=== PATIENT | female | born 1975 | race Caucasian/White ===

== ENCOUNTER 2017-08-30 20:52 | Emergency (ER) | payer OTHER ==
[2017-08-30 21:17] VITALS: BP 118/55; PULSE 61; TEMP 98.4; BMI 35.2
[2017-08-30] MEDS ORDERED: AMOX TR/POT CLAV 875MG/125MG TABLETS (FP) PO ONE (23:51)
[2017-08-30] MEDS ORDERED: IBUPROFEN 400 MG TABLET (FP) PO ONE ×2 (23:51→23:58)
[2017-08-30] MEDS ORDERED: AMOX TR/POT CLAV 875MG/125MG TABLETS (FP) ONE (23:58)
--- NOTE | 2017-08-30 23:58 | PDOC ---
History of Present Illness - General Chief Complaint: Vaginal Sxs Stated Complaint: ABDOMINAL PAIN Time Seen by Provider: 08/30/17 23:10 History Source: Patient - History of Present Illness Initial Comments: 08/31/17 00:18 42 year old female with left labial swelling and pain that is worsening x 2 days. denies fever, NVD, urinary symptoms at this time. Past History - Past Medical History Allergies/Adverse Reactions: Allergies Allergy/AdvReac Type Severity Reaction Status Date / Time No Known Allergies Allergy Verified 08/02/17 12:29 Home Medications: Ambulatory Orders Amoxicillin/Potassium Clav [Augmentin 875-125 Tablet] 1 each PO BID #20 tablet 08/31/17 Ibuprofen 600 mg PO QID PRN #20 tablet 08/31/17 Asthma: No Cancer: No Cardiac Disorders: No Diabetes: No HTN: No Seizures: No Thyroid Disease: No - Reproductive History (#): 4 Para: 3 Cervical CA: No Dysfunctional Uterine Bleeding: No Ectopic : No Endometrial CA: No Polycystic Ovaries: No Therapeutic (s) & number: No Tubal Ligation: No Spontaneous : 0 - Immunization History Immunization Up to Date: Yes - Suicide/Smoking/Psychosocial Hx Smoking History: Never smoked Have you smoked in the past 12 months: No Number of Cigarettes Smoked Daily: 0 Cigars Per Day: 0 Hx Alcohol Use: No Drug/Substance Use Hx: No Substance Use Type: None Hx Substance Use Treatment: No Review of Systems - Review of Systems Able to Perform ROS?: Yes Is the patient limited Swedish proficient: No Constitutional: No: Symptoms Reported, See HPI, Chills, Diaphoresis, Fever, Loss of Appetite, Malaise, Night Sweats, Weakness, Weight Stable, Unintentional Wgt. Loss, Unexplained wgt Loss, Other : Yes: Other (labial swelling) *Physical Exam - Vital Signs Last Vital Signs Temp Pulse Resp BP Pulse Ox 98.4 F 61 14 118/55 100 08/30/17 21:12 08/30/17 21:12 08/30/17 21:12 08/30/17 21:12 08/30/17 21:12 - Physical Exam General Appearance: Yes: Appropriately Dressed Procedures - Incision and Drainage I&D Site: Left: Groin (left labial swelling) Betadine cleansed: Yes Anesthesia: 1% Lidocaine Volume(ml): 5 Blade Size: 11 Attempts: 1 Iodinated Packin/4 in Plain Packing: Yes Complications: none Dressing: No (pad ) Progress: 08/31/17 00:20 ~ 3-4 ml of serous fluid drainaged from left labia. Progress Note - Progress Note Progress Note: A: bartholin cyst drAINAGE P: see i & D note will cover with augmentin pain control wound check in 2 days. *DC/Admit/Observation/Transfer Diagnosis at time of Disposition: Bartholin gland cyst - Discharge Dispostion Disposition: HOME - Prescriptions Prescriptions: Amoxicillin/Potassium Clav [Augmentin 875-125 Tablet] 1 each PO BID #20 tablet Ibuprofen 600 mg PO QID PRN #20 tablet PRN Reason: Pain - Patient Instructions Printed Discharge Instructions: DI for Bartholin Gland Cyst Additional Instructions: use sitz bath 3-4 times daily. return to the ER in 2 days for wound reevaluation, continue augmentin as prescribed. take ibuprofen every 6 hours as needed for pain.
--- NOTE | 2017-08-31 00:22 | PDOC ---
*Physical Exam - Vital Signs Last Vital Signs Temp Pulse Resp BP Pulse Ox 98.4 F 61 14 118/55 100 08/30/17 21:12 08/30/17 21:12 08/30/17 21:12 08/30/17 21:12 08/30/17 21:12 ED Treatment Course - Medications Given in the ED: ED Medications Discontinued Medications Generic Name Dose Route Start Last Admin Trade Name Freq PRN Reason Stop Dose Admin Amoxicillin/Clavulanate Potassium 1 tab 08/30/17 23:51 08/31/17 00:01 Augmentin - 875mg Tablet PO 08/30/17 23:52 1 tab ONCE ONE Administration Ibuprofen 800 mg 08/30/17 23:51 08/31/17 00:01 Motrin - PO 08/30/17 23:52 800 mg ONCE ONE Administration Medical Decision Making - Medical Decision Making 08/31/17 00:22 agree with care MARISELA Floyd
== END 2017-08-31 00:49 | disposition home or self-care (01) ==
LOC: JERFT 20:52 → JER 20:52
DX: N75.0 Cyst of Bartholin's gland (principal)
CPT/HCPCS: 99284-25

== ENCOUNTER 2017-09-01 19:54 | Emergency (ER) | payer OTHER ==
[2017-09-01 20:02] VITALS: BP 132/63; PULSE 54; TEMP 98.6; BMI 61.5
--- NOTE | 2017-09-01 20:32 | PDOC ---
Suture Removal/Wound Check HPI - History of Present Illness Chief Complaint: Revisit,Wound Recheck Stated Complaint: WOUND CHECK Time Seen by Provider: 09/01/17 20:23 History Source: Yes: Patient Exam Limitations: Yes: No Limitations [facility] Date of Last ED visit: 08/30/17 - Previous ED Treatment Type of procedure performed on last visit: Yes: Other (I&D of Bartholin's) Antibiotics Prescribed: Yes (pt unable to fill Rx) Past History - Past Medical History Allergies/Adverse Reactions: Allergies Allergy/AdvReac Type Severity Reaction Status Date / Time No Known Allergies Allergy Verified 09/01/17 20:02 Home Medications: Ambulatory Orders Acetaminophen [Tylenol] 650 mg PO PRN 08/31/17 Ibuprofen 600 mg PO QID PRN #20 tablet 08/31/17 Amoxicillin/Potassium Clav [Augmentin 875-125 Tablet] 1 each PO BID #20 tablet 09/01/17 Asthma: No Cancer: No Cardiac Disorders: No Diabetes: No HTN: No Seizures: No Thyroid Disease: No - Reproductive History (#): 4 Para: 3 Cervical CA: No Dysfunctional Uterine Bleeding: No Ectopic : No Endometrial CA: No Polycystic Ovaries: No Therapeutic (s) & number: No Tubal Ligation: No Spontaneous : 0 - Immunization History Immunization Up to Date: Yes - Suicide/Smoking/Psychosocial Hx Smoking History: Never smoked Have you smoked in the past 12 months: No Number of Cigarettes Smoked Daily: 0 Cigars Per Day: 0 Hx Alcohol Use: No Drug/Substance Use Hx: No Substance Use Type: None Hx Substance Use Treatment: No Suture Removal/Wound Check PE - Physical Exam Laceration/Wound Check Symptoms: reports: None Current Severity Level: None Maximum Severity Level: None Pain Localization: None *Review of Systems - Review of Systems Able to Perform ROS?: Yes Constitutional: No: Symptoms Reported HEENTM: No: Symptoms Reported Respiratory: No: Symptoms reported Cardiac (ROS): No: Symptoms Reported ABD/GI: No: Symptoms Reported : No: Symptoms Reported Musculoskeletal: No: Symptoms Reported Integumentary: No: Symptoms Reported Neurological: No: Symptoms reported Medical Decision Making - Medical Decision Making 09/01/17 20:33 This is a 42-year-old woman without significant past medical history who presents to the ER today for wound check status post I&D of Bartholin's cyst on 08/30. Patient was prescribed Augmentin at that time but has not filled prescription because prescription was sent to the wrong pharmacy. Wound is well appearing without discharge or drainage. No Word catheter is in place. The area is not erythematous patient says she has not had a fevers. *DC/Admit/Observation/Transfer Diagnosis at time of Disposition: Bartholin gland cyst - Discharge Dispostion Disposition: HOME Condition at time of disposition: Stable Admit: No - Prescriptions Prescriptions: Amoxicillin/Potassium Clav [Augmentin 875-125 Tablet] 1 each PO BID #20 tablet - Patient Instructions Additional Instructions: Use baos de asiento 3 veces al da segn sea necesario para el dolor. [place] Augmentin segn lo prescrito. [place] Tylenol o Motrin segn sea necesario para el dolor siguiendo las instrucciones del fabricante. Regrese al departamento de emergencia para cualquier descarga, drenaje, dolor tommy o cualquier otra inquietud. Epi por elegirnos para brindarle she necesidades mdicas de emergencia.
== END 2017-09-01 20:38 | disposition home or self-care (01) ==
LOC: JERFT 19:54
DX: N75.0 Cyst of Bartholin's gland (principal)
CPT/HCPCS: 99281-25

== ENCOUNTER 2019-05-23 21:33 | Emergency (ER) | payer OTHER ==
[2019-05-23 22:16] VITALS: BMI 39.0
--- NOTE | 2019-05-24 00:50 | PDOC ---
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) Past History - Past Medical History Allergies/Adverse Reactions: Allergies Allergy/AdvReac Type Severity Reaction Status Date / Time No Known Allergies Allergy Verified 09/01/17 20:02 Home Medications: Ambulatory Orders Acetaminophen [Tylenol] 650 mg PO PRN 08/31/17 Ibuprofen 600 mg PO QID PRN #20 tablet 08/31/17 Amoxicillin/Potassium Clav [Augmentin 875-125 Tablet] 1 each PO BID #20 tablet 09/01/17 Clotrimazole [Lotrimin 1% Solution -] 1 applic TP BID #1 bottle 05/24/19 Asthma: No Cancer: No Cardiac Disorders: No Diabetes: No HTN: No Seizures: No Thyroid Disease: No - Reproductive History (#): 4 Para: 3 Cervical CA: No Dysfunctional Uterine Bleeding: No Ectopic : No Endometrial CA: No Polycystic Ovaries: No Therapeutic (s) & number: No Tubal Ligation: No Spontaneous : 0 - Immunization History Immunization Up to Date: Yes - Suicide/Smoking/Psychosocial Hx Smoking History: Never smoked Have you smoked in the past 12 months: No Number of Cigarettes Smoked Daily: 0 Cigars Per Day: 0 Hx Alcohol Use: No Drug/Substance Use Hx: No Substance Use Type: None Hx Substance Use Treatment: No *Physical Exam - Vital Signs Last Vital Signs Temp Pulse Resp BP Pulse Ox 98.2 F 60 20 103/51 L 99 05/23/19 22:11 05/23/19 22:11 05/23/19 22:11 05/23/19 22:11 05/23/19 22:11 - Physical Exam General Appearance: No: Apparent Distress Respiratory/Chest: positive: Lungs Clear, Normal Breath Sounds. negative: Respiratory Distress Cardiovascular: positive: Regular Rhythm, Regular Rate, S1, S2. negative: Murmur Gastrointestinal/Abdominal: positive: Other (gravid uterus) Integumentary: positive: Rash (almost circular lesion noted along R side of neck and also along abdomen, +excoriation and dryness of skin, raised bumps, no vesicular lesions). negative: Hives, Petechiae, Swelling, Ecchymosis, Bruising Neurologic: positive: Alert, Normal Mood/Affect Medical Decision Making - Medical Decision Making 44 y/o F currently 34 weeks presents with itchy rash along neck, abdomen and feet from last week. States it went away last week and returned yesterday. States PCP prescribed ?cream last week, but patient did not receive anything when she went to pharmacy. Denies recent travel/use of new meds/ products/food, recent camping/hiking, sob, cp, abd pain, n/v, vaginal bleeding Possible fungal rash? D/W Dr. Neal - plan for Lotrimin cream patient to be sent to L&D given 34 weeks 05/24/19 00:46 *DC/Admit/Observation/Transfer Diagnosis at time of Disposition: Rash - Discharge Dispostion Disposition: HOME Condition at time of disposition: Stable Decision to Admit order: No - Prescriptions Prescriptions: Clotrimazole [Lotrimin 1% Solution -] 1 applic TP BID #1 bottle - Referrals - Patient Instructions Printed Discharge Instructions: DI for Rash Additional Instructions: Thank you for choosing [facility]. It was a pleasure taking care of you. Please apply cream twice a day Follow-up with your doctor in 2 days Return to the Emergency Department if your symptoms worsen or persist or have other concerning symptoms. Epi por elegir el [facility]. Fue un placer cuidar de ti. Por favor, aplique crema dos veces al da. Seguimiento con gibson mdico en 2 sierra. Regrese al Departamento de Emergencias si she sntomas empeoran o persisten o si tiene otros sntomas relacionados. - Post Discharge Activity
[2019-05-24 01:32] VITALS: BP 101/56; PULSE 62; TEMP 98.4
== END 2019-05-24 01:44 | disposition home or self-care (01) ==
LOC: JER 21:33
DX: O99.89 Other specified diseases and conditions complicating pregnancy, childbirth and the puerperium (principal); R21 Rash and other nonspecific skin eruption; Z3A.34 34 weeks gestation of pregnancy
CPT/HCPCS: 99282-25

== ENCOUNTER 2019-06-20 09:25 | Inpatient (IN) | payer OTHER ==
[2019-06-20] MEDS ORDERED: OXYTOCIN 30 UNITS in 0.9% NS 30 UNIT/500 ML INFUS.BAG IVPB ONE ×2 (09:49→17:33)
[2019-06-20] MEDS ORDERED: ELECTROLYTE-148 SOLN 1,000 ML IV SCH ×2 (09:50→11:00)
[2019-06-20 10:24] VITALS: BMI 37.5
[2019-06-20] MEDS ORDERED: BUTORPHANOL TARTRATE 1 MG/ML VIAL IVPB ONE (10:47)
[2019-06-20] MEDS ORDERED: OXYTOCIN 30 UNITS in 0.9% NS 30 UNIT/500 ML INFUS.BAG IVPB SCH (11:00)
--- NOTE | 2019-06-20 11:07 | HP ---
Past Medical History - Admission Chief Complaint: IOL History of Present Illness: 44yo @ 39.1wks by LMP c/w early sono, NAYE 06/26/19 here for IOL, elective. Preg c/b AMA, elevated DSR on FTS, normal Materniti 21- 46XY, abnormal pap ( colpo PP), QFT pos, CXR neg, obesity, 06/03 nl sono but AC 95%tile [facility] @ [address], consistent History Source: Patient Limitations to Obtaining History: Language Barrier - Past Medical History BUSINESS RELATIONSHIP MANAGER: No: Alzheimer's, CVA, Dementia, Migraine, Multiple Sclerosis, Peripheral Neuropathy, Parkinson's, Seizure, Syncope, TIA, Vertigo, Other Cardiovascular: No: AFIB, Aneurysm, Aortic Insufficiency, Aortic Stenosis, CAD, CHF, Deep Vein Thrombosis, HTN, Hyperlipdemia, MD, Mitral Insufficiency, Mitral Stenosis, Murmur, Pulmonary Hypertension, Other Pulmonary: No: Asthma, Bronchitis, Cancer, COPD, O2 Dependent, Pneumonia, Previously Intubated, Pulmonary Embolus, Pulmonary Fibrosis, Sleep Apnea, Other Gastrointestinal: No: Ascites, Cancer, Constipation, Crohn's Disease, Diverticulitis, Diverticulosis, Esophageal Varices, Gastritis, GERD, GI Bleed, Hemorrhoids, Hiatal Hernia, Inflamatory Bowel Disease, Irritable Bowel Disease, Pancreatitis, Peptic Ulcer Disease, Ulcerative Colitis, Other Hepatobiliary: No: Cirrhosis, Cholelithiasis, Cholecystitis, Choledocholithiasis , Hepatitis A, Hepatitis B, Hepatitis C, Other Renal/: No: Renal Failure, Renal Inusuff, BPH, Cancer, Hematuria, Hemodialysis , Neurogenic Bladder, Renal Calculi, UTI, Other Reproductive: No: Ectopic , Endometriosis, Fibroids, PID, Polycystic Ovary Syndrome, Postmenopausal, Other ...: 5 ...Para: 3 ...Term: 3 ...: 0 ...Spon : 1 ...Induced : 0 ...LMP: 09/19/18 ...EDC by Dates: 06/22/19 ...EDC by Sono: 06/26/19 Heme/Onc: Yes: Anemia Infectious Disease: No: AIDS, C-Diff, Herpes Zoster, HIV, MRSA, STD's, Tuberculosis, VREF, Other Psych: No: Addictions, Anxiety, Bipolar, Depression, Panic, Psychosis, Schizophrenia, Other Musculoskeletal: No: Bursitis, Chronic low back pain, Hemiparesis, Hemiplegia, Osteoarthritis, Paraplegia, Other Rheumatology: No: Fibromyalgia, Gout, Lupus, Rheumatoid Arthritis, Sarcoidosis, Vasculitis, Other ENT: No: Allergic Rhinitis, Sinusitis, Other Endocrine: No: Stefano's Disease, Glenoma's Disease, Diabetes Insipidus, Diabetes Mellitus, Hyperparathyroidism, Hyperthyroidism, Hypothyroidism, Osteopenia, SIADH, Other Dermatology: No: Basal Cell, Cellulitis, Eczema, Melanoma, Psoriasis, Squamous Cell, Other - Past Surgical History Past Surgical History: No: None, AAA Repair, AICD, Amputation, Appendectomy, Arthrosocopy, AV Fistula/Graft, Bariatric Surgery, Breast Biopsy, Bypass, CABG, Carotid Endarterectomy, Cataract Removal, Cholecystectomy, Colectomy, Colonoscopy, Colostomy, Craniotomy, , Cystectomy, Hernia Repair, Hysterectomy, Ileal Conduit, Ileosotomy, Joint Replacement, Kidney Transplant, Laminectomy, Liver Transplant, Mastectomy, Nephrectomy, Oopherectomy, Orchiectomy, Permanent Pacemaker, Prostatectomy, Splenectomy, Stent, Thoracotomy , TURP, Tonsillectomy, Tubal Ligation, Upper Endoscopy, Valve Replacement, Vasectomy, Vein Stripping/Ligation Hx Myomectomy: No Hx Transabdominal Cerclage: No - Smoking History Smoking history: Never smoked Have you smoked in the past 12 months: No Aproximately how many cigarettes per day: 0 - Alcohol/Substance Use Hx Alcohol Use: No History of Substance Use: reports: None - Social History Usual Living Arrangement: Yes: Alone ADL: Independent History of Recent Travel: No Home Medications - Allergies Allergies/Adverse Reactions: Allergies Allergy/AdvReac Type Severity Reaction Status Date / Time No Known Allergies Allergy Verified 05/24/19 00:59 - Home Medications Home Medications: Ambulatory Orders Iron 1 tab PO DAILY 06/20/19 Vitamins (Sjr) - 1 tab PO DAILY 06/20/19 Physical Exam - Maternity Constitutional: Yes: Well Nourished, No Distress, Calm Eyes: Yes: WNL, Conjunctiva Clear, EOM Intact HENT: Yes: WNL, Atraumatic, Normocephalic Neck: Yes: WNL, Supple, Trachea Midline Cardiovascular: Yes: WNL, Regular Rate and Rhythm Breast(s): Yes: WNL - Abdominal Exam/OB Number of Fetuses: Single Presentation: Vertex Contractions: No Heart Rate Location: LUQ Category: I Accelerations: Non-Uniform Decelerations: None - Vaginal Exam/OB Vaginal Bleediing: No Speculum Exam: No Dilatation (cm): 2 Effacement (%): 50 Amniotic Membrane Status: Intact Station: -3 - Physical Exam Edema: No Assessment/Plan 44yo @ 39+wks here for elective IOL Admit to L&D Christiansen bulb, pitocin Stadol prn, epidural prn Cat I tracing Clear fluids PO, IVFs Anticipate Alfonzo Cobb MD
[2019-06-20 11:11] LABS: BASO % 0.7 % (0-2.0); EOS % 0.5 % (0-4.5); HEMATOCRIT 33.1 % (32.4-45.2); HEMOGLOBIN 10.9 GM/dL (10.7-15.3); LYMPH % 24.7 % (8-40); MCH 26.5 pg (25.7-33.7); MCHC 32.8 g/dl (32.0-36.0); MEAN CELL VOLUME 80.8 fl (80-96); MEAN PLT VOLUME 7.9 fl (7.5-11.1); MONO % 7.3 % (3.8-10.2); NEUT % 66.8 % (42.8-82.8); PLATELET COUNT 264 K/MM3 (134-434); RBC 4.11 M/mm3 (3.60-5.2); RDW 17.4 % (11.6-15.6); WHITE BLOOD COUNT 6.1 K/mm3 (4.0-10.0)
[2019-06-20 11:34] LABS: BLOOD UREA NITROGEN 7.2 mg/dL (7-18); CALCIUM 8.8 mg/dL (8.5-10.1); CREATININE 0.5 mg/dL (0.55-1.3); POTASSIUM 4.3 mmol/L (3.5-5.1)
[2019-06-20 12:13] LABS: INR 0.92 (0.83-1.09); PROTHROMBIN TIME (PATIENT) 10.9 SEC (9.7-13.0)
[2019-06-20 12:16] LABS: ACTIVATED PTT 27.4 SECONDS (25.2-36.5)
--- NOTE | 2019-06-20 12:47 | PN ---
Progress Note, Labor Vaginal Exam #1 Labor Exam Date: 06/20/19 Labor Exam Time: 12:47 Heart Rate (range): Cat I Dilatation: 4 Effacement (%): 50 Amniotic Membrane Status: Ruptured Presentation: Vertex/Position Station: -3 Remarks: Christiansen Bulb out AROM, scant clear/blood tinged Cont Pitocin Cat I tracing Anticipate KAREN Cobb MD
[2019-06-20] MEDS ORDERED: FENTANYL/BUPIVACAINE/NS/PF - PCEA - 50 ML DISP.SYRIN EP ONE (14:36)
[2019-06-20] MEDS ORDERED: NALOXONE HCL 0.4 MG/ML VIAL IVPUSH PRN (16:01)
[2019-06-20] MEDS ORDERED: FENTANYL/BUPIVACAINE/NS/PF - PCEA - 50 ML DISP.SYRIN EP SCH (16:15)
--- NOTE | 2019-06-20 16:18 | PN ---
Progress Note, Labor Vaginal Exam #2 Labor Exam Date: 06/20/19 Labor Exam Time: 16:15 Heart Rate (range): Cat I Dilatation: 6 Effacement (%): 70 Amniotic Membrane Status: Ruptured Presentation: Vertex/Position Station: -3 Remarks: Comfortable s/p epidural Now 6cm Cont Pitocin Anticipate Alfonzo Cobb MD
--- NOTE | 2019-06-20 17:29 | PN ---
Progress Note, Labor Vaginal Exam #3 Labor Exam Date: 06/20/19 Labor Exam Time: 17:29 Heart Rate (range): Cat i Dilatation: 9 Effacement (%): 100 Amniotic Membrane Status: Ruptured Presentation: Vertex/Position Station: 0 Remarks: Feeling urge to push 9cm with reducible cervix Anticipate Alfonzo Cobb MD
[2019-06-20] MEDS ORDERED: LIDOCAINE HCL 1% PRESERVATIVE FREE - 30ML VIAL ONE (17:33)
[2019-06-20] MEDS ORDERED: BISACODYL 10 MG SUPP.RECT RC PRN (18:36)
[2019-06-20] MEDS ORDERED: WITCH HAZEL 50% (TUCKS) 40 PAD/JAR PAD TP PRN (18:36)
[2019-06-20] MEDS ORDERED: METHYLERGONOVINE MALEATE 0.2 MG/1 ML AMP IM PRN (18:36)
[2019-06-20] MEDS ORDERED: BENZOCAINE 28 GM HEMORRHOIDAL OINTMENT TP PRN (18:36)
[2019-06-20] MEDS ORDERED: BENZOCAINE 20% 57 GM BOTTLE TP PRN (18:36)
--- NOTE | 2019-06-20 18:36 | PN ---
Delivery - Delivery Vaginal Delivery: Shoulder/Difficult Maneuvers: Didi, Delivery of posterior arm Type of Anesthesia: Epidural Episiotomy/Laceration: Midline, 2nd degree EBL (cc): 250 Delivery, Single - Stages of Labor Placenta: Yes: Spontaneous - Condition of Infant Ship Erector/Nurse Case Manager Present: Yes Infant Gender: Male Position: Right, OA - 1 Minute Total Score: 2 5 Minutes Total Score: 7 - Feeding Plan Initial Plan: Elected not to breastfeed exclusively throughout hospitalization Remarks - Remarks Remarks: Patient pushed spontaneously to deliver head, VMI, MARLENI position over intact perineum. Epidural anesthesia. No spontaneous delivery of the anterior shoulder from MARLENI position with maternal effort. Despite encouragement, poor maternal effort continued and she was unable to deliver the anterior (left) shoulder. Shoulder dystocia announced. McRobert's performed by nursing staff with no resolution of the shoulder dystocia and still poor maternal effort. Decision made to proceed with delivery of posterior arm. right arm palpated along anterior surface, flexed at the elbow and wrist grasped to deliver posterior shoulder and arm. Resolution of the shoulder dystocia noted and anterior shoulder delivered subsequently without any difficulty. placed on maternal abdomen, cord clamped and cut by provider. Right arm noted to be limp and NICU attending and staff notified immediately. The was handed over to the awaiting NICU staff. Cord glasses obtained. Apgars 2, 7. Weight 8lbs, 7oz. Spontaneous delivery of intact placenta. 3VC. Second degree laceration noted and repaired with a 2-0 vicryl. Hemostasis noted. Fundus firm. EBL 250ml. Complication and difficulty of delivery explained to patient and her partner, advised of suspected fracture of the R arm and possible need for transfer, if confirmed on Xray, to [facility] for continuation of care with orthopedics. Rika Cobb MD
[2019-06-20] MEDS ORDERED: OXYTOCIN 20 UNITS in 0.9% NS 20 UNIT/1,000 ML INFUS.BAG IV SCH (18:45)
[2019-06-20] MEDS ORDERED: IBUPROFEN 600 MG TABLET (FP) PO ONE (19:04)
[2019-06-20] MEDS ORDERED: ACETAMINOPHEN 325 MG TABLET (FP) ONE (19:04)
[2019-06-20] MEDS: IBUPROFEN 600 MG TABLET (FP) PO PRN (19:05)
[2019-06-20] MEDS: ACETAMINOPHEN 325 MG TABLET (FP) PO PRN (19:05)
[2019-06-21] MEDS: IBUPROFEN 600 MG TABLET (FP) PO PRN ×3 (04:36→19:28)
[2019-06-21] MEDS: ACETAMINOPHEN 325 MG TABLET (FP) PO PRN ×3 (04:36→19:28)
[2019-06-21 07:33] LABS: BASO % 0.3 % (0-2.0); EOS % 0.4 % (0-4.5); HEMATOCRIT 30.6 % (32.4-45.2); HEMOGLOBIN 10.2 GM/dL (10.7-15.3); MCHC 33.4 g/dl (32.0-36.0); MEAN CELL VOLUME 80.8 fl (80-96); MEAN PLT VOLUME 8.4 fl (7.5-11.1); MONO % 5.9 % (3.8-10.2); NEUT % 75.4 % (42.8-82.8); PLATELET COUNT 225 K/MM3 (134-434); RBC 3.78 M/mm3 (3.60-5.2); RDW 17.4 % (11.6-15.6); WHITE BLOOD COUNT 9.1 K/mm3 (4.0-10.0)
[2019-06-21] MEDS ORDERED: PRENATAL VITAMINS W/ FOLIC ACID TABLET (FP) PO SCH (10:00)
--- NOTE | 2019-06-21 12:06 | PN ---
Post Progress Note - Subjective Subjective: Pain controlled. No fevers/chills. transferred 2/2 fracture Post Day: 1 Type of Delivery: Vital Signs: Vital Signs Temperature 97.9 F 06/21/19 10:00 Pulse Rate 63 06/21/19 10:00 Respiratory Rate 20 06/21/19 10:00 Blood Pressure 99/52 L 06/21/19 10:00 O2 Sat by Pulse Oximetry (%) 100 06/20/19 17:30 Breast Exam: Yes: Soft Uterus: Yes: Fundus @ umbilicus Incision: Yes: Sutures intact Abdomen/GI: Yes: Abdomen soft Lochia: Yes: Rubra Lochia, amount: Small Extremities: Yes: Calves non-tender Perineum: Yes: Laceration Activity: Ambulating - Labs Labs: CBC WBC 9.1 K/mm3 (4.0-10.0) 06/21/19 06:40 RBC 3.78 M/mm3 (3.60-5.2) 06/21/19 06:40 Hgb 10.2 GM/dL (10.7-15.3) L 06/21/19 06:40 Hct 30.6 % (32.4-45.2) L 06/21/19 06:40 MCV 80.8 fl (80-96) 06/21/19 06:40 MCH 27.0 pg (25.7-33.7) 06/21/19 06:40 MCHC 33.4 g/dl (32.0-36.0) 06/21/19 06:40 RDW 17.4 % (11.6-15.6) H 06/21/19 06:40 Plt Count 225 K/MM3 (134-434) 06/21/19 06:40 MPV 8.4 fl (7.5-11.1) 06/21/19 06:40 Absolute Neuts (auto) 6.9 K/mm3 (1.5-8.0) 06/21/19 06:40 Neutrophils % 75.4 % (42.8-82.8) 06/21/19 06:40 Lymphocytes % 18.0 % (8-40) D 06/21/19 06:40 Monocytes % 5.9 % (3.8-10.2) 06/21/19 06:40 Eosinophils % 0.4 % (0-4.5) 06/21/19 06:40 Basophils % 0.3 % (0-2.0) 06/21/19 06:40 Nucleated RBC % 0 % (0-0) 06/21/19 06:40 Assessment/Plan 44yo s/p , PPD#1 Routine PP care Labs reviewed Vitals stable Anticipate d/c to home today or by PPD#2 Alfonzo Cobb MD
[2019-06-21 18:47] VITALS: BP 102/60; PULSE 59; TEMP 98.5
[2019-06-21] MEDS ORDERED: SENNOSIDES/DOCUSATE COMBO (SENNA PLUS) TABLET (UD) PO PRN (22:00)
== END 2019-06-21 20:30 | disposition home or self-care (01) | DRG 560 ==
LOC: JLDR 09:25 → J3W 21:02
PROVIDERS: ADMIT Obstetrics & Gynecology; ATTEND Obstetrics & Gynecology
PROC: 0KQM0ZZ Repair Perineum Muscle, Open Approach (ICD-10-PCS; principal; 2019-06-20)
PROC: 10E0XZZ Delivery of Products of Conception, External Approach (ICD-10-PCS; 2019-06-20)
DX: O70.1 Second degree perineal laceration during delivery (principal); Z3A.39 39 weeks gestation of pregnancy; Z37.0 Single live birth
CPT/HCPCS: 36415; 36600; 59409; 71046-TC-FY; 80048; 82803; 85025; 85610; 85730; 86593; 86850; 86900; 86901